=== PATIENT | female | born 1980 | race American Indian/Alaskan Native ===

== ENCOUNTER 2016-05-11 14:43 | Outpatient (CLI) | payer MEDICAID ==
[2016-05-11 15:29] VITALS: BP 102/55
[2016-05-11] MEDS ORDERED: LACTATED RINGERS 500 ML IV ONE (15:30)
== END 2016-05-11 16:02 | disposition home or self-care (01) ==
LOC: TRG 14:43
PROVIDERS: ATTEND Obstetrics & Gynecology
DX: Z34.90 Encounter for supervision of normal pregnancy, unspecified, unspecified trimester (principal); Z3A.00 Weeks of gestation of pregnancy not specified
CPT/HCPCS: 59025

== ENCOUNTER 2016-07-14 21:23 | Outpatient (CLI) | payer MEDICAID ==
[2016-07-14 22:11] VITALS: BP 136/74
== END 2016-07-14 22:10 | disposition home or self-care (01) ==
LOC: TRG 21:23
PROVIDERS: ATTEND Obstetrics & Gynecology
DX: O09.523 Supervision of elderly multigravida, third trimester (principal); O26.893 Other specified pregnancy related conditions, third trimester; R25.2 Cramp and spasm; Z3A.37 37 weeks gestation of pregnancy
CPT/HCPCS: 59025

== ENCOUNTER 2016-07-19 12:22 | Outpatient (CLI) | payer MEDICAID ==
[2016-07-19 12:34] VITALS: BP 145/66
--- NOTE | 2016-07-19 13:41 | Ultrasound Report ---
BIOPHYSICAL PROFILE: INDICATION: well being. COMPARISON: None similar. TECHNIQUE: Transabdominal ultrasound with Doppler interrogation. 2 - breathing movements 2 - movements 2 - posture and tone 2 - Qualitative amniotic fluid volume 8 - TOTAL SCORE OF POSSIBLE 8 Heart Rate (bpm) 148
--- NOTE | 2016-07-19 13:41 | Ultrasound Report ---
OB LIMITED INDICATION: well being. COMPARISON: None similar. TECHNIQUE: Transabdominal grayscale ultrasound with Doppler interrogation. Gestation: Bee Position: Cephalic Amniotic Fluid: WNL (7-24 cm) MARGARITA = 11 cm Heart Rate: 140 BPM
== END 2016-07-19 13:48 | disposition home or self-care (01) ==
LOC: TRG 12:22
PROVIDERS: ATTEND Obstetrics & Gynecology
DX: O09.523 Supervision of elderly multigravida, third trimester (principal); O47.03 False labor before 37 completed weeks of gestation, third trimester; Z3A.38 38 weeks gestation of pregnancy
CPT/HCPCS: 59025; 76815; 76819

== ENCOUNTER 2016-07-27 05:13 | Inpatient (IN) | payer MEDICAID ==
--- NOTE | 2016-07-26 17:30 | History and Physical Report ---
History of Present Illness History of present illness: Patient being admitted for primary C/S with BTL. Patient's course complicated by gestational diabetes and macrosomia. Patient is on oral hypoglycemics. Ultrasound at [facility] on 07/21/2016 had EFW>4300g. Patient desires c/ s and permanent sterilization. Menstrual History Regularity: regular Menses every: 28 days Duration: 5 LMP: 10/24/2015 LMP reliability: definite LMP character: normal test type: urine test Date: 12/08/2015 BC at conception: none Planned ? yes EDC Calculations LMP: 07/30/2016 EDC Confirmation: 07/30/2016 Past History : 3 Term Births: 2 Premature Births: 0 Living Children: 2 Para: 2 Mult. Births: 0 Prev : 0 Prev. attempt? 0 Aborta: 0 Elect. Ab: 0 Spont. Ab: 0 Ectopics: 0 # 1 Delivery date: 10/13/1998 Weeks Gestation: 39 labor: no Delivery type: Hours of labor: >20 Anesthesia type: epidural Delivery location: [place] Sex: Female weight: 8-6 Name: Ellis # 2 Delivery date: 12/30/2007 Weeks Gestation: 39 labor: no Delivery type: Hours of labor: 3 Anesthesia type: none Delivery location: [place] [facility] Sex: Male weight: 9-4 Name: Ulises Past Medical History: Kidney Stone Past Surgical History: Negative Past Surgical History Past Medical History Surgery (Non-slide developer): Negative Past Surgical History Abnormal PAP: negative Uterine Anomaly: negative 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 Infection History Hx of STD: none Personal hx. of genital herpes: no Partner hx. of genital herpes: no Genetic History ADVANCED MATERNAL AGE Congenital Heart Defect: Mom: no Dad: no Ana María Disease: Mom: no Dad: no Thalassemia Mom: no Dad: no Neural Tube Defect Mom: no Dad: no Down's Syndrome Mom: no Dad: no Pascual-Sachs Mom: no Dad: no Sickle Cell Disease/Trait Mom: no Dad: no Hemophilia Mom: no Dad: no Muscular Dystrophy Mom: no Dad: no Cystic Fibrosis Mom: no Dad: no Bell Chorea Mom: no Dad: no Mental Retardation Mom: no Dad: no Fragile X Mom: no Dad: no Other Genetic/Chromosomal Disorder Mom: no Dad: no Child w/other defect Mom: no Dad: no Enviromental Exposures Xray Exposure: no Medication, drug, or alcohol use since LMP: no Chemical/Other Exposure: no Exposure to Cat Liter: no Hx of Parvovirus (Fifth Disease): no Current Allergies (reviewed today): PCN (Critical) Past History Past Medical History: other (See HPI) Past Surgical History: other (See HPI) 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: other (See HPI) Family/Genetic History: other (See HPI) Social history: other (See HPI) - Obstetrical History Expected Date of Delivery: 07/30/16 Actual Gestation: 39 Week(s) 3 Day(s) : 3 Para: 2 Hx # Term Pregnancies: 2 Number of Pregnancies: 0 Spontaneous Abortions: 0 Induced : 0 Number of Living Children: 2 Medications and Allergies Allergies Allergy/AdvReac Type Severity Reaction Status Date / Time Penicillins Allergy Hives Verified 04/18/14 14:22 - Physical Exam Breasts: Positive: deferred Cardiovascular: Regular rate Lungs: Positive: Normal air movement Abdomen: Positive: normal appearance, soft, other (obese) Genitourinary (Female): Positive: normal external genitalia Vagina: Positive: normal moisture Uterus: Positive: enlarged - Obstetrical FHR: auscultation normal Uterine Contraction Pattern: Absent Results All other labs normal. Assessment and Plan - Patient Problems (1) with 39 completed weeks gestation Status: Acute (2) Gestational diabetes Status: Acute Qualifiers: Gestational diabetes mellitus control: oral hypoglycemic-controlled Trimester: third trimester Qualified Code(s): O24.415 - Gestational diabetes mellitus in , controlled by oral hypoglycemic drugs (3) Macrosomia affecting management of mother in third trimester Status: Acute Plan to address problem: Patient desires primary c/s Patient declined labor inductioDiscuss the risks of the surgery including infection, bleeding possibly heavy enough to require a blood transfusion, possible damage to bowel, bladder or ureter. Her questions were answered. Patient understands and desires to proceed (4) Kidney stones Status: Chronic (5) Morbidly obese Status: Acute Qualifiers: Obesity type: unspecified obesity type Qualified Code(s): E66.01 - Morbid ( severe) obesity due to excess calories (6) Encounter for sterilization Status: Acute Plan to address problem: Patient desires sterilization.Discuss the permanency of sterilization. High risk of regret and 0.5 to 1% risk of failure. Patient understands and desires to proceed.
[~2016-07-27 05:13] MED LIST: CLEOCIN 600 MG/50 mL 600 MG/50 ML BAG IV NR; PITOCin/NS 20 UNIT/1000ML DRIP 20 UNITS/1,000 ML BAG IV SCH
[2016-07-27] MEDS: LACTATED RINGERS 1,000 ML IV SCH ×2 (05:40→06:30)
[2016-07-27] MEDS ORDERED: BICITRA PO SCH (06:30)
[2016-07-27] MEDS ORDERED: REGLAN IV SCH (07:00)
[2016-07-27] MEDS ORDERED: PEPCID IV SCH (07:00)
--- NOTE | 2016-07-27 07:06 | Event Note ---
Date: 07/27/16 (called to bedside by RN) pt states she is anxious about c/s and when she felt the ctx she wanted to have a vaginal delivery. Explained to pt that yes she is denise but with those ctx, the baby is have decelerations of heart rate. They appear to be lates and are a sign that the baby would not tolerate labor. SVE 1.5, thick, high per RN. Explained to both pt and FOB the concerns of a strip that looks like this and the fact that her cervix is not a laboring cervix. All questions were addressed and answered. Both the pt and her partner want to move forward with the section. Text that the c/s is a go. Restated to pt and her partner that she may decline the c/s and move to vaginal delivery. Again both stated they desire operative delivery.
--- NOTE | 2016-07-27 07:22 | Anesthesia Consultation ---
Anesthesia Consult and Med Hx Date of service: 07/27/16 - Airway Anesthetic Teeth Evaluation: Good ROM Head & Neck: Adequate Mental/Hyoid Distance: Adequate Mallampati Class: Class II Intubation Access Assessment: Probably Good - Pre-Operative Health Status ASA Pre-Surgery Classification: ASA3 Proposed Anesthetic Plan: Spinal - Pulmonary Hx Asthma: No - Cardiovascular System Hx Hypertension: No - Central Nervous System Hx Seizures: No Hx Psychiatric Problems: Yes (anxiety, depresion) - Endocrine Hx Renal Disease: No Hx Non-Insulin Dependent Diabetes: Yes (gestational) Hx Hypothyroidism: No Hx Hyperthyroidism: No - Hematic Hx Anemia: No Hx Sickle Cell Disease: No - Other Systems Hx Alcohol Use: No Hx Obesity: Yes (BMI 46.7)
--- NOTE | 2016-07-27 07:23 | Anesthesia Day of Surgery ---
Anesthesia Day of Surgery - Day of Surgery Patient Examined: Yes Patient H&P Reviewed: Yes Patient is NPO: Yes
[2016-07-27 07:32] LABS: Basophils % (Auto) 0.3 % (0.0-1.8); Eosinophils % (Auto) 0.5 % (0.0-4.3); Hematocrit 34.9 % (30.3-42.9); Hemoglobin 11.1 gm/dl (10.1-14.3); Mean Corpuscular HGB Conc 32 % (30-34); Mean Corpuscular Hemoglobin 27 pg (28-32); Mean Corpuscular Volume 86 fl (79-97); Platelet Count 213 K/mm3 (140-440); Red Blood Count 4.06 M/mm3 (3.65-5.03); Red Cell Distribution Width 17.1 % (13.2-15.2); White Blood Count 8.7 K/mm3 (4.5-11.0)
[2016-07-27] MEDS ORDERED: SODIUM CHLORIDE FLUSH SYRINGE 10 ML IV PRN (08:00)
[2016-07-27] MEDS ORDERED: BENADRYL IV PRN (08:00)
[2016-07-27] MEDS ORDERED: NUBAIN IV PRN ×2 (08:00→22:48)
[2016-07-27] MEDS ORDERED: DILAUDID IV PRN (08:00)
[2016-07-27] MEDS ORDERED: MORPHINE ONE (08:08)
[2016-07-27] MEDS ORDERED: ZOFRAN IV PRN (08:30)
[2016-07-27] MEDS ORDERED: GARAMYCIN 140 MG in NACL 0.9% 100 ML IV NR (08:30)
[2016-07-27] MEDS ORDERED: NARCAN 0.4 MG/1 ML IV PRN ×2 (08:30→11:00)
[2016-07-27] MEDS ORDERED: WATER FOR IRRIG STERILE IR ONE (08:51)
[2016-07-27] MEDS ORDERED: NACL 0.9% IR ONE (08:51)
[2016-07-27] MEDS ORDERED: ZOFRAN ONE (09:36)
--- NOTE | 2016-07-27 10:19 | Operative Report ---
Operative Report Operative Report: Date of procedure: 07/27/2016 Pre-operative diagnosis: 39 weeks gestation Gestational diabetes Morbid obesity macrosomia Post-operative diagnosis: Same ;4+ meconium Procedure name(s): Primary lower transverse section via Pfannenstiel skin incision Surgeon: Dr. Allen Upholstery Parts Sorter: Fauzia Ludin Anesthesia: Spinal EBL: 900 mL Urine output: 25 mL of clear urine at end of procedure Fluids: 900 mL Findings: Liveborn male infant weight 9 lbs. 15 oz. Apgars of 35 and 7 at one and 5 and 10 minutes 4+ meconium Fundal fibroid approximately 2 cm on the right side Skin burn noted from Bovie at the end of the procedure at the mid left upper portion of the incision Indications: Patient presents for elective primary with bilateral tubal ligation. was elected by the patient due to suspected macrosomia with estimated weight of over 4500 g. All risks benefits and alternatives were discussed with the patient. Consents were signed and placed on the chart. However upon entering into the operating room patient decided that she did not want to have a to ligation. Therefore tubal ligation was not performed Procedure: Patient was taking to the operating room. Patient was then prepped and draped in sterile fashion after anesthesia was found to be adequate. A low transverse skin incision was made with the scalpel and carried down to the underlying layer of fascia with the Bovie. The fascia was then incised in the midline and this incision was extended bilaterally with the Bovie. The superior aspect of the fascia was grasped with Gali clamps tented upward and dissected off of the anterior rectus muscles with the scalpel. In similar fashion the inferior aspect of the fascia was grasped with Gali clamps tented upward and dissected off of the anterior rectus muscles. The rectus muscles were then bluntly divided in the midline. The peritoneum was identified and entered into sharply. The Too retractor was placed. The bladder blade was placed. The bladder flap was created using the Metzenbaum scissors. The bladder blade was replaced. A lower transverse uterine incision was made with the scalpel and extended bilaterally with the bandage scissors. Artificial rupture of membranes was performed yielding 4+ meconium amniotic fluid was noted. The 's head was then delivered atraumatically. The anterior shoulder and rest of infant delivered without difficulty. The umbilical cord was clamped x2. The cord was cut. The was then placed in sterile bassinet. The cord blood was collected The placenta was manually extracted in its entirety. The uterus was exteriorized and cleared of all clots and debris. The uterine incision was closed using 0 Vicryl in a running locking fashion. A second imbricating layer of the same suture was then created. The posterior cul-de-sac was copiously irrigated. The uterus was returned to the abdomen. Tisseel was placed along the uterine incision with excellent hemostasis noted The gutters were also irrigated. The anterior rectus muscles were reapproximated using 3-0 Vicryl. The anterior rectus fascia was reapproximated using 0 Vicryl in a running fashion. The subcuticular fat was reapproximated using 2-0 Vicryl in a running fashion. The skin was reapproximated with oral Monocryl with a subcuticular stitch. The patient tolerated the procedure well. Sponge lap and needle counts were all correct x3. Patient was taken to the recovery room awake and in stable condition.
[2016-07-27] MEDS ORDERED: NORCO 5/325 PO PRN (11:00)
[2016-07-27] MEDS ORDERED: LANSINOH TP PRN (11:00)
[2016-07-27] MEDS ORDERED: D5LR 1,000 ML IV SCH (11:00)
[2016-07-27] MEDS ORDERED: TUCKS PAD TP PRN (11:00)
[2016-07-27] MEDS ORDERED: MYLICON PO PRN (11:00)
[2016-07-27] MEDS ORDERED: MILK OF MAGNESIA PO PRN (11:00)
[2016-07-27] MEDS: TORADOL IV PRN ×2 (12:02→21:38)
[2016-07-27] MEDS: CLEOCIN 600 MG/50 mL 600 MG/50 ML BAG IV SCH (18:34)
--- NOTE | 2016-07-27 18:36 | Post Anesthesia Evaluation ---
- Post Anesthesia Evaluation Patient Participated: Yes Airway Patent: Yes Stable Respiratory Function: Yes Nausea/Vomiting: No Temp > 96.8F: Yes Pain Manageable: Yes Adequeate Hydration: Yes Anesthesia Complications: No
[2016-07-27] MEDS: FEOSOL PO SCH (22:00)
[2016-07-27 22:54] LABS: Hematocrit 28.3 % (30.3-42.9); Hemoglobin 9.2 gm/dl (10.1-14.3)
[2016-07-28] MEDS: CLEOCIN 600 MG/50 mL 600 MG/50 ML BAG IV SCH (02:09)
[2016-07-28] MEDS: TORADOL IV PRN (05:55)
[2016-07-28] MEDS ORDERED: BOOSTRIX IM ONE (06:00)
--- NOTE | 2016-07-28 07:09 | Progress Note ---
Assessment and Plan - Patient Problems (1) delivery delivered Onset Date: ~07/27/16 Current Visit: Yes Status: Acute Plan to address problem: Pt A&O X 3 No c/o voiced VSS FF below umb Lochia small Dressing D&I H&H pending Doing well s/p c/s P: continue pathway D/C tomorrow if stable. Subjective - Subjective Date of service: 07/28/16 (pt w/o complaint) Principal diagnosis: DAy # 1 s/p primary section Patient reports: voiding normally, pain well controlled : transported ([place] / [facility]) Objective - Vital Signs Latest vital signs: Vital Signs Temp Pulse Pulse Resp BP BP Pulse Ox 07/28/16 04:00 98.6 F 77 16 150/71 07/28/16 00:00 98.6 F 74 16 167/77 07/27/16 21:38 18 07/27/16 19:30 98.6 F 86 16 110/64 07/27/16 16:00 98.3 F 86 18 137/76 07/27/16 12:00 98.0 F 80 18 127/76 07/27/16 11:45 98.2 F 86 20 116/74 07/27/16 10:56 84 15 95/65 96 07/27/16 10:41 76 18 111/53 96 07/27/16 10:26 89 12 121/51 98 07/27/16 10:11 99 H 14 122/53 98 07/27/16 10:06 90 17 122/56 98 07/27/16 10:01 93 H 16 103/51 98 07/27/16 09:56 98.4 F 96 H 16 116/59 97 Intake and Output 07/27/16 07/28/16 07/28/16 22:59 06:59 14:59 Intake Total 2270 550 Output Total 1100 350 Balance 1170 200 Intake: IV 1250 50 CLEOCIN 600 MG/50 mL 600 50 mg In 50 ml @ 100 mls/hr IV Q8H AYO Rx#:[id number] D5lr 1,000 ml @ 125 mls/ 500 hr IV DIRECT AYO Rx#: [id number] Left Hand 750 Oral 1020 Intake, Free Water 500 Output: Urine 1100 350 Indwelling Catheter 1100 350 Other: Total, Intake Amount 1020 Total, Output Amount 600 350 # Voids Indwelling Catheter 1 - Exam Breasts: Present: Cardiovascular: Present: Regular rate Lungs: Present: Normal air movement Abdomen: Present: normal appearance, soft, normal bowel sounds Uterus: Present: normal, fundal height below umbilicus Extremities: Present: edema Deep Tendon Reflex Grade: Normal +2 Incision: Present: dry, intact, dressed - Labs Labs: Abnormal lab results 07/27/16 07/27/16 Range/Units 05:40 22:06 Hgb 9.2 L (10.1-14.3) gm/dl Hct 28.3 L D (30.3-42.9) % MCH 27 L (28-32) pg RDW 17.1 H (13.2-15.2) %
[2016-07-28] MEDS: FEOSOL PO SCH (10:50)
[2016-07-28] MEDS: NORCO 5/325 PO PRN ×2 (12:57→20:21)
[2016-07-28] MEDS: MOTRIN PO PRN ×2 (12:57→20:20)
--- NOTE | 2016-07-28 13:24 | Progress Note ---
Subjective Date of service: 07/28/16 Principal diagnosis: DAy # 1 s/p primary section Interval history: 1st POD after Patient is in the bed, comfortable. Pain is mostly controlled with pain meds. Ambulated well. No nausea or vomiting. No residual neurological deficit. No anesthesia complications Objective - Constitutional Vitals: Vital Signs - 12hr 07/28/16 07/28/16 07/28/16 04:00 08:30 12:40 Temperature 98.6 F 98.4 F 98.2 F Pulse Rate [ 77 81 93 H From Monitor] Respiratory 16 18 Rate Blood Pressure 150/71 142/62 128/63 [Right Arm] - Labs CBC & Chem 7: 07/27/16 22:06 Labs: Abnormal lab results 07/27/16 Range/Units 22:06 Hgb 9.2 L (10.1-14.3) gm/dl Hct 28.3 L D (30.3-42.9) %
[2016-07-29] MEDS: MOTRIN PO PRN ×2 (05:15→10:46)
[2016-07-29] MEDS ORDERED: BOOSTRIX IM ONE (06:00)
--- NOTE | 2016-07-29 07:48 | Progress Note ---
Assessment and Plan patient w/o complaints this morning, desires d/c to go see baby. Hedy pérez , VSSAF, H&H stable 9.2/28.3 (anemia d/t blood loss, acute - no s/s anemia). Plan for f/u 1 week in office for incision check. - Patient Problems (1) delivery delivered Onset Date: ~07/27/16 Current Visit: Yes Status: Acute Subjective - Subjective Date of service: 07/29/16 Principal diagnosis: DAy # 2 s/p primary section Patient reports: appetite normal, voiding normally, pain well controlled, flatus , ambulating normally, no dizzy ambulation, no nauseated [place]: transported (pt reports infant is doing well) Objective - Vital Signs Latest vital signs: Vital Signs Temp Pulse Resp BP 07/29/16 00:11 98.5 F 68 20 133/58 07/28/16 16:35 98.2 F 85 18 120/59 07/28/16 12:40 98.2 F 93 H 18 128/63 07/28/16 08:30 98.4 F 81 142/62 Intake and Output 07/28/16 07/29/16 07/29/16 22:59 06:59 14:59 Intake Total 550 240 Output Total 1000 Balance -450 240 Intake: Oral 50 Intake, Free Water 500 240 Output: Urine 1000 Indwelling Catheter 1000 Other: Total, Intake Amount 50 Total, Output Amount 1000 Voiding Method Toilet # Voids Indwelling Catheter 1 # Bowel Movements 0 - Exam Breasts: Present: normal Cardiovascular: Present: Regular rate Lungs: Present: Clear to auscultation, Normal air movement Abdomen: Present: normal appearance, soft Uterus: Present: normal, firm, fundal height at umbilicus Extremities: Present: normal Incision: Present: normal, dry, intact
--- NOTE | 2016-07-29 07:50 | Discharge Summary ---
Providers - Providers Date of Admission: 07/27/16 05:13 Date of discharge: 07/29/16 (desires d/c today) Attending physician: VICTOR HUGO NORIEGA Primary care physician: VICTOR HUGO NORIEGA Hospitalization Reason for admission: section Delivery: Procedure: bilateral tubal ligation, primary low transverse Incision: normal, dry, intact Other procedures: none complications: none Discharge diagnosis: IUP at term delivered [place] baby: male Hospital course: uncomplicated c/s Condition at discharge: Good Disposition: DISCHARGED TO HOME OR SELFCARE - Discharge Diagnoses (1) delivery delivered Status: Acute Plan - Discharge Medications Prescriptions: Docusate Sodium [Colace] 100 mg PO BID PRN #60 capsule PRN Reason: Constipation Ferrous Sulfate [Feosol 325 MG tab] 325 mg PO QDAY #30 tablet Ibuprofen [Motrin 800 MG tab] 800 mg PO Q8HR PRN #30 tablet PRN Reason: Pain Lidocain2.5%/Prilocai2.5% [Emla] 5 gm TP ONCE #1 tube oxyCODONE /ACETAMINOPHEN [Percocet 5/325] 1 tab PO Q4HR #30 tab - Provider Discharge Summary Activity: routine, no sex for 6 weeks, no heavy lifting 4 weeks, no strenuous exercise Diet: routine Instructions: routine Additional instructions: [] Smoking cessation referral if applicable(refer to patient education folder for contact #) [] Refer to [facility]'s [facility] Booklet Call your doctor immediately for: * Fever > 100.5 * Heavy vaginal bleeding ( >1 pad per hour) * Severe persistent headache * Shortness of breath * Reddened, hot, painful area to leg or breast * Drainage or odor from incision. * Keep incision clean and dry at all times and follow doctor's instructions regarding bathing/showering - Follow up plan Follow up: VICTOR HUGO NORIEGA MD [Primary Care Provider] - 7 Days (Congratulations! Please call [phone] to schedule your son's circumcision and your incision check in 1 week. Bring EMLA cream to your son's appointment and await further instructions. Call for any questions or concerns.)
[2016-07-29 09:48] VITALS: BP 114/74
[2016-07-29] MEDS: FEOSOL PO SCH (10:46)
[2016-07-29] MEDS: NORCO 5/325 PO PRN (10:46)
== END 2016-07-29 11:40 | disposition home or self-care (01) | DRG 765 ==
LOC: APU 05:13 → OB 11:18
PROVIDERS: ADMIT Obstetrics & Gynecology; ATTEND Obstetrics & Gynecology
PROC: 10D00Z1 Extraction of Products of Conception, Low, Open Approach (ICD-10-PCS; principal; 2016-07-27)
PROC: 3E0234Z Introduction of Serum, Toxoid and Vaccine into Muscle, Percutaneous Approach (ICD-10-PCS; 2016-07-29)
DX: O76 Abnormality in fetal heart rate and rhythm complicating labor and delivery (principal); Z68.42 Body mass index [BMI] 45.0-49.9, adult; O24.425 Gestational diabetes mellitus in childbirth, controlled by oral hypoglycemic drugs; Z3A.39 39 weeks gestation of pregnancy; Z37.0 Single live birth; O99.214 Obesity complicating childbirth; E66.01 Morbid (severe) obesity due to excess calories; O36.63X0 Maternal care for excessive fetal growth, third trimester, not applicable or unspecified; Z87.442 Personal history of urinary calculi; O77.0 Labor and delivery complicated by meconium in amniotic fluid; Z88.0 Allergy status to penicillin; O99.344 Other mental disorders complicating childbirth; F32.9 Major depressive disorder, single episode, unspecified; F41.9 Anxiety disorder, unspecified; Z23 Encounter for immunization; O34.13 Maternal care for benign tumor of corpus uteri, third trimester; D25.9 Leiomyoma of uterus, unspecified
CPT/HCPCS: 36415; 82962; 85014; 85018; 85025; 86592; 86850; 86900; 86901; 88307; 90471; 90715; 99211; C9250; G0463; J1580; J1885; J2270; J2300; J2405; J2590; J2765; J7120; J7121